=== PATIENT | female | born 1940 | race Two or more races ===

== ENCOUNTER 2024-05-24 16:29 | Emergency (ER) | payer MEDICARE, MEDICAID, SELFPAY ==
[2024-05-24] VITALS (8 sets, daily range): BP systolic 125–164; BP diastolic 61–104; PULSE 74–84; RESP 13–22; TEMP 36.8–37.1; O2SAT 95–100; BMI 26.4; BMI 25.1
--- NOTE | 2024-05-24 19:12 | PD.EDBACK ---
ED Back Injury Pain RME/HPI General Chief Complaint: Back Pain/Injury Stated Complaint: SYNCOPE Time Seen by Provider: 05/24/24 19:05 Arrival date/time: 05/24/24 16:29 This is an 83-year-old female that is brought in by ambulance with complaints of syncope episode. Patient states that she has been sick for over a week. Patient was recently seen by her primary provider and was diagnosed with a sinus infection. Patient started antibiotics. Patient states that she was feeling sick with antibiotics. Patient was having vomiting episodes at home. The patient reports a subjective fever approximately 3 days ago. Patient complains of runny nose, cough, sore throat, sinus pressure bilaterally, left ear feels close but not in pain. Patient has a history of diabetes, heart murmur, high blood pressure, hyperlipidemia. Related Data Previous Rx's ?Medication ?Instructions ?Recorded ondansetron 4 mg disintegrating 4 mg PO Q6H PRN nausea and 05/24/24 tablet vomiting #10 tabs Allergies Allergy/AdvReac Type Severity Reaction Status Date / Time Penicillins Allergy Severe Hives Verified 05/24/24 18:28 Review of Systems Review of Systems Systems Reviewed: All systems reviewed, normal except as documented Past Medical History Past Medical History Comments PMH COMMENT: High blood pressure, diabetes, hyperlipidemia, heart murmur. ED Exam General General appearance: Present alert Head Head exam: Present atraumatic Eye Eye exam: Present normal appearance, PERRL and EOMI ENT ENT exam: Present mucous membranes moist Neck Neck exam: Present normal inspection, full ROM and trachea midline Chest Chest inspection: Present normal inspection and symmetric chest wall rise Respiratory Respiratory exam: Present normal lung sounds bilaterally Cardiovascular Cardiovascular exam: Present regular rate, normal rhythm and systolic murmur Abdominal Exam Abdominal exam: Present soft and normal bowel sounds Extremities Exam Extremities exam: Present full ROM Back Exam Back exam: Present full ROM and other (Pain with range of motion to upper and lower back, pain to lateral muscles of lumbar spine no pain over spinal processes.) Neurological Exam Neurological exam: Present alert and oriented X3 Psychiatric Psychiatric exam: Present normal affect and normal mood Skin Skin exam: Present warm, dry, intact and normal color Course Quality Measures none Orders Category Date Time Status Bedside COVID-19 Antigen Test NOW Care 05/24/24 19:29 Completed Bedside Influenza A&B Antigen Test NOW Care 05/24/24 19:29 Completed EKG (ED ONLY) *Do not use* NOW Care 05/24/24 19:26 Completed Insert IV STAT Care 05/24/24 19:[address] cervical spine wo con Stat Exams 05/24/24 19:[address] head/brain wo con Stat Exams 05/24/24 19:[address] lumbar spine wo con Stat Exams 05/24/24 19:[address] thoracic spine wo con Stat Exams 05/24/24 19:26 Completed EKG (ED Only) Stat Exams 05/24/24 19:26 Draft XR chest 1V Stat Exams 05/24/24 19:26 Completed BNP [B-Type Natriuretic Peptide] Stat Lab 05/24/24 19:43 Completed Basic Metabolic Panel Stat Lab 05/24/24 22:43 Completed CBC Stat Lab 05/24/24 19:43 Completed Comprehensive Metabolic Panel Stat Lab 05/24/24 19:43 Completed Lipase Stat Lab 05/24/24 19:43 Completed Troponin I Stat Lab 05/24/24 19:43 Completed Urinalysis, C/S if Indicated Stat Lab 05/24/24 22:27 Completed Sodium Chloride 0.9% 500 ml [Ns] 500 ml Med 05/24/24 19:39 Discontinued IV 999 mls/hr Sodium Chloride 0.9% 500 ml [Ns] 500 ml Med 05/24/24 22:21 Discontinued IV 999 mls/hr [id number] [Rocephin] 1,000 mg Med 05/24/24 23:08 Discontinued Sodium Chloride 0.9% (P) [Ns 0.9% (P)] 50 ml IV X1 Vital Signs Vital signs: Vital Signs Temperature 98.3 F 05/24/24 16:34 Pulse Rate 78 05/24/24 16:34 Respiratory Rate 19 05/24/24 16:34 Blood Pressure 144/61 H 05/24/24 16:34 Pulse Oximetry (%) 95 05/24/24 16:34 Oxygen Delivery Method Room Air 05/24/24 16:34 Procedures -ED EKG Interpretation #1: Date of EK05/24/24 Time of EK:36 Rate: 81 Interpretation: Interpreted by me (Sinus rhythm) EKG Impression: No ectopy, Normal QRS and Normal intervals Back Pain / Injury MDM Narrative MDM Narrative:: CT cervical : Findings: Axial sections demonstrate intact base of the skull. C1 exhibit satisfactory relationship to the odontoid. No acute cervical vertebral body fracture seen. Alignment posterior spinous processes satisfactory. Impression: No acute cervical fracture. Chest x ray: Findings: Minor prominence left ventricle No pneumonia or pulmonary edema Prominent osteopenia Impression: No active disease CT head: Findings: No significant ventricular enlargement. Intra-axial or extra-axial hemorrhage density is not seen. No mass effect or midline shift Basal cisterns are not remarkable. Fourth ventricle is midline. Cranial vault intact. Impression: Negative for acute hemorrhage, mass effect or midline shift Lumbar spine ct: Findings: No acute lumbar vertebral body compression fracture Advanced disc narrowing L3-L4 L5-S1 spondylolysis Lumbar pedicles, laminae, transverse and posterior spinous processes intact Axial images demonstrate no focal lumbar disc protrusion Impression: No acute lumbar fracture Thoracic spine ct: Findings: Adequate alignment thoracic vertebral bodies on the lateral view No thoracic vertebral body compression fracture Thoracic pedicles, laminae, transverse and posterior spinous processes intact Mild to moderate diffuse thoracic degenerative disc disease Impression: No acute thoracic fracture Labs show wbc 18.9 with an elevated neutrophil. BUN and creatinine 24 and 1.7, ast 38 alt 31, alk phos 151, urine showed wbc, leuko estrase, Pt given a liter of iv fluids and felt better. Pt given a dose of rocephin. Pt kidney function improved with iv fluids. Spoke at length with patient about lab results. I told her shje needed to follow up with primary provider to make sure that kidnye function continued to improve. Pt told to follow up with primary provider in 1-2 days. Come back to emergency room if symptoms chaneg or worsen. Patient data External records reviewed:: [facility] previous records Clinical information provided by:: patient Social determinants that could affect healthcare access:: none Patient has the following chronic illnesses:: see note How is presenting disease/condition affected by chronic disease/condition?: exacerbated by Evaluation data The following diagnostics were reviewed and interpreted by me:: lab results, radiology exam(s) and EKG tracing(s) Lab and/or radiology exams considered but not ordered:: ct abdomen and pelvis Interpretation Summary: see note Medications / Prescriptions Medications or Prescriptions considered but not ordered:: none Medication administrations:: Medication Administration History Discontinued Medications Sodium Chloride (Ns) 500 mls @ 999 mls/hr IV .Q31M ONE Stop: 05/24/24 20:09 Last Infusion: 05/24/24 20:45 Dose: Infused Documented By: MARIA DEL CARMEN Admin: 05/24/24 19:53 Dose: 999 mls/hr Documented By: MARIA DEL CARMEN Sodium Chloride (Ns) 500 mls @ 999 mls/hr IV .Q31M ONE Stop: 05/24/24 22:51 Last Infusion: 05/24/24 23:26 Dose: Infused Documented By: MARIA DEL CARMEN Admin: 05/24/24 22:29 Dose: 999 mls/hr Documented By: MARIA DEL CARMEN Ceftriaxone Sodium 1,000 mg/ (Sodium Chloride) 50 mls @ 100 mls/hr IV X1 ONE Stop: 05/24/24 23:37 Last Infusion: 05/24/24 23:54 Dose: Infused Documented By: MARIA DEL CARMEN Admin: 05/24/24 23:18 Dose: 100 mls/hr Documented By: MARIA DEL CARMEN see mar Consultations Consultation(s) initiated? (list below): No Diagnosis Differential diagnosis back pain/injury: lumbar radiculopathy, renal colic, pyelonephritis, thoracic back pain and other (uti) Most likely diagnosis given after review of the tests above:: uti, dehydration Admission Indicated Admission indicated?: not indicated Admission Request Was there a request for admission?: No Disposition Plan Disposition Plan: Discharge Discharge Attestation Discharge Attestation: The patient and all family members were given an opportunity to ask questions and understood the discharge instructions. Discharge instructions specifically effects, indications for sooner follow up or return to the emergency department, and the expected course of current diagnosis. Patient condition: Stable Discharge Plan Plan Patient Disposition: HOME (Self Care) Patient condition on transfer: Stable Prescriptions/Referrals Prescriptions/Med Rec: New ondansetron 4 mg tablet,disintegrating 4 mg PO Q6H PRN (Reason: nausea and vomiting) Qty: 10 0RF Referrals: No Primary/Family,Physician [Primary Care Provider] - In 1 week Problem List Clinical Impression: Back pain, Acute UTI, Vomiting, GIGI (acute kidney injury), Congestion of nasal sinus Patient/Caregiver Discharge Instructions Discharge Activity: activity as tolerated Education Materials: ED CYSTITIS Female Adult Additional Instructions: Follow up with primary provider in 1-2 days. Come back to ED if symptoms change or worsen. Please drink plenty of fluids. Please follow-up with urine culture with primary provider. Please have kidney function checked again to make sure it continues to improve with hydration. Print Language: Setswana Stand Alone Forms: Kary Award Info., Patient Portal Info Letter PA/CUSTOMER SALES REPRESENTATIVE Supervising Physician PA/CUSTOMER SALES REPRESENTATIVE Supervising Physician: hui
--- NOTE | 2024-05-24 19:26 | XR_ITS ---
Examination: CT thoracic spine, without contrast. 2-D sagittal reconstructions. 2-D coronal reconstructions. 3-D reconstructions. Date and time of exam:May 24, 2024 2013 hrs. Indications: Syncopal episode today, patient fell injury to the mid back, mid back pain CTDI: vol (mGy):18.2 DLP: (mGycm):593 Technique: Multiple 1.25 mm axial sections of the thoracic spine without intravenous contrast have been obtained. 2-D sagittal and coronal reconstructions have been obtained. 3-D reconstructions have been obtained. Low dose protocols were performed. One or more of the following dose reduction techniques were used; automated exposure control, adjustment of the mA and/or KV according to patient size, use of iterative reconstruction technique. Findings: Adequate alignment thoracic vertebral bodies on the lateral view No thoracic vertebral body compression fracture Thoracic pedicles, laminae, transverse and posterior spinous processes intact Mild to moderate diffuse thoracic degenerative disc disease Impression: No acute thoracic fracture
--- NOTE | 2024-05-24 19:26 | XR_ITS ---
Examination: AP chest single view Technique: AP portable semiupright chest single view Exam date and time: May 24, 2024 1951 hrs. Indications: Syncope today. Findings: Minor prominence left ventricle No pneumonia or pulmonary edema Prominent osteopenia Impression: No active disease
--- NOTE | 2024-05-24 19:26 | XR_ITS ---
Examination: CT cervical spine without contrast 2-D sagittal reconstructions 2-D coronal reconstructions 3-D reconstructions. Exam date and time:May 24, 20252005 hrs. Indications: Patient fell today with injury to the neck, neck pain CTDI:vol (mGy) 7.73 DLP: (mGycm) 165 Technique: Multiple 2 mm axial sections of the cervical spine have been obtained. The coronal and sagittal reconstructions have been obtained. 3-D reconstructions have been obtained. Low dose protocols were performed. One or more of the following dose reduction techniques were used; automated exposure control, adjustment of the mA and/or KV according to patient size, use of iterative reconstruction technique. Findings: Axial sections demonstrate intact base of the skull. C1 exhibit satisfactory relationship to the odontoid. No acute cervical vertebral body fracture seen. Alignment posterior spinous processes satisfactory. Impression: No acute cervical fracture.
--- NOTE | 2024-05-24 19:26 | EKG_ITS ---
[facility] Test Date: 2024-05-24 Pat Name: LAUREN HUTCHINS Department: Room: - Gender: Female Academic Associate: : 1940 Requested By: Delmi Thibodeaux Order Number: [id number] Reading MD: Delmi Thibodeaux Measurements Intervals [place] Rate: 81 P: 46 MT: 149 QRS: -17 QRSD: 85 T: -1 QT: 383 QTc: 445 Interpretive Statements SINUS RHYTHM LOW QRS VOLTAGE IN PRECORDIAL LEADS [QRS DEFLECTION < 1.0 mV IN CHEST LEADS] MINIMAL VOLTAGE CRITERIA FOR LVH, CONSIDER NORMAL VARIANT [MEETS CRITERIA IN ONE OF: R(aVL), S(V1), R(V5), R(V5/V6)+S(V1)] No previous ECG available for comparison /store/S0/[id number].pdf
--- NOTE | 2024-05-24 19:26 | XR_ITS ---
Examination: CT brain head without contrast. 2-D sagittal coronal reconstructions Date and time of exam:May 24, 20242005 hrs. Indications: Patient fell today with injury to the head, head pain CTDI: vol (mGy):46.1 DLP: (mGycm):800 Technique: Multiple CT axial sections of the brain have been obtained, 5 mm slice thickness. Contrast has not been administered. 2-D sagittal, coronal reconstructions have been obtained Low dose protocols were performed. One or more of the following dose reduction techniques were used; automated exposure control, adjustment of the mA and/or KV according to patient size, use of iterative reconstruction technique. Findings: No significant ventricular enlargement. Intra-axial or extra-axial hemorrhage density is not seen. No mass effect or midline shift Basal cisterns are not remarkable. Fourth ventricle is midline. Cranial vault intact. Impression: Negative for acute hemorrhage, mass effect or midline shift
--- NOTE | 2024-05-24 19:26 | XR_ITS ---
Examination: CT lumbar spine, without contrast. 2-D sagittal reconstructions. 2-D coronal reconstructions. 3-D reconstructions. Date and time of exam:May 24, 2024 2013 hrs. Indications: Patient fell today with into the lower back, lower back pain CTDI: vol (mGy):18.8 DLP: (mGycm):451 Technique: Multiple 1.25 mm axial sections of the lumbar spine without intravenous contrast have been obtained. 2-D sagittal and coronal reconstructions have been obtained. 3-D reconstructions have been obtained. Low dose protocols were performed. One or more of the following dose reduction techniques were used; automated exposure control, adjustment of the mA and/or KV according to patient size, use of iterative reconstruction technique. Findings: No acute lumbar vertebral body compression fracture Advanced disc narrowing L3-L4 L5-S1 spondylolysis Lumbar pedicles, laminae, transverse and posterior spinous processes intact Axial images demonstrate no focal lumbar disc protrusion Impression: No acute lumbar fracture
[2024-05-24] MEDS: SODIUM CHLORIDE 0.9% 500 ML 500 ML 999 ML IV ×2 (19:53→22:29)
[2024-05-24 20:10] LABS: Basophils # (Auto) 0.2 Thou/mm3 (0.0-0.2); Basophils % (Auto) 1 % (0-2.5); Eosinophils % (Auto) 0 % (0-10); Hemoglobin 13.5 g/dL (12.0-16.0); Immature Granulocytes % (Auto) 0 % (0-0); Immature Granulocytes Auto 0.07 Thou/mm3 (0.00-0.00); Lymphocytes % (Auto) 11 % (10-50); Mean Corpuscular HGB Conc 33.8 g/dl (31.0-37.0); Mean Corpuscular Hemoglobin 30.2 pg (25.0-35.0); Mean Corpuscular Volume 90 fL (80-100); Monocytes # (Auto) 1.1 Thou/mm3 (0.0-0.8); Monocytes % (Auto) 6 % (0-12); Neutrophils # (Auto) 15.5 Thou/mm3 (1.8-7.7); Neutrophils % (Auto) 82 % (37-80); Nucleated Red Blood Cell % 0 /100 WBC (0); Platelet Count 246 Thou/mm3 (140-440); RDW Standard Deviation 40.2 fL (36.4-46.3); Red Blood Count 4.47 Miln/mm3 (4.00-5.20); White Blood Count 18.9 Thou/mm3 (3.6-11.0)
[2024-05-24 20:20] LABS: B-Type Natriuretic Peptide 76 pg/mL (0-100)
[2024-05-24 20:22] LABS: Alanine Aminotransferase 31 U/L (10-49); Albumin, Serum 4.2 gm/dL (3.4-4.8); Albumin/Globulin Ratio 1.2 (1.2-2.2); Alkaline Phosphatase 151 U/L (46-116); Anion Gap 8 (7-16); Aspartate Amino Transferase 38 U/L (0-34); BUN/Creatinine Ratio 14 Ratio (12-20); Bilirubin,Total 0.5 mg/dL (0.3-1.2); Blood Urea Nitrogen 24 mg/dL (9-23); Calcium 9.9 mg/dL (8.3-10.6); Calcium (Corrected) 9.9 mg/dL (8.5-10.1); Carbon Dioxide 25.5 mMol/L (20.0-31.0); Chloride 106 mMol/L (98-107); Creatinine (Component) 1.7 mg/dL (0.6-1.3); Estimated Creatinine Clearance 21.6 mL/min (>60); Globulin 3.4 gm/dL (2.3-3.5); Glucose 159 mg/dL (74-106); Lipase 31 U/L (12-53); Osmolality,Calculated 284 (275-295); Potassium 4.1 mMol/L (3.4-5.1); Sodium 139 mMol/L (136-145); Total Protein 7.6 gm/dL (5.7-8.2); Troponin I < 0.020 ng/mL (0.0-0.045); eGFR 30 See Note
[2024-05-24 22:34] LABS: Collection Type, Urine Voided; Squamous Epithelial Cell,Urine 0 /hpf (0-5)
[2024-05-24 23:01] LABS: Bilirubin,Urine Negative (Negative); Blood,Urine Negative (Negative); Clarity,Urine Clear (Clear/Hazy); Color,Urine Colorless (Lt Yel-Yel); Culture Indicated,Urine Not Indicated; Glucose, Urine Negative (Negative); Ketones,Urine Negative (Negative); Leukocyte Esterase,Urine Positive (Negative); Nitrite,Urine Negative (Negative); Protein,Urine Negative (Neg - Trace); RBC,Urine 1 /hpf (0-3); Specific Gravity,Urine 1.006 (1.001-1.035); Urobilinogen,Urine Negative mg/dL (0.0-1.0); WBC,Urine 7 /hpf (0-5)
[2024-05-24] MEDS: cefTRIAXone 1,000 MG in SODIUM CHLORIDE 0.9% (P) 50 ML 100 MG IV (23:18)
[2024-05-24 23:19] LABS: Anion Gap 4 (7-16); BUN/Creatinine Ratio 14 Ratio (12-20); Blood Urea Nitrogen 23 mg/dL (9-23); Calcium 8.9 mg/dL (8.3-10.6); Carbon Dioxide 25.3 mMol/L (20.0-31.0); Chloride 109 mMol/L (98-107); Creatinine (Component) 1.6 mg/dL (0.6-1.3); Glucose 242 mg/dL (74-106); Osmolality,Calculated 287 (275-295); Potassium 3.9 mMol/L (3.4-5.1); Sodium 138 mMol/L (136-145); eGFR 32 See Note
== END 2024-05-24 23:54 | disposition home or self-care (01) ==
PROVIDERS: Nurse Practitioner Family; Emergency Provider Emergency Medicine
DX: N17.9 Acute kidney failure, unspecified (principal); N39.0 Urinary tract infection, site not specified; R09.81 Nasal congestion; R55 Syncope and collapse; S09.90XA Unspecified injury of head, initial encounter; S19.9XXA Unspecified injury of neck, initial encounter; S29.9XXA Unspecified injury of thorax, initial encounter; R94.31 Abnormal electrocardiogram [ECG] [EKG]; S39.92XA Unspecified injury of lower back, initial encounter; W19.XXXA Unspecified fall, initial encounter
CPT/HCPCS: 36415; 70450; 71045; 72125; 72128; 72131; 80048; 80053; 81001; 83690; 83880; 84484; 85025; 87086; 87400; 87811; 93005; 96361; 96365; 99284; J0696; J7040; J7050

== ENCOUNTER → 2025-02-03 | Outpatient (CLI) | payer MEDICARE, MEDICAID, SELFPAY ==
--- NOTE | 2025-02-03 | XR_ITS ---
Examination: Abdomen 2 views TECHNIQUE: AP supine AP upright abdomen 2 views Date and time: January 26, 2025 1129 hours INDICATIONS: Acute abdominal pain beginning 5 days ago. FINDINGS: Large amounts of stool throughout the colon Lumbar levoscoliosis 15 degrees. No free air. 2 mm calcification over the left kidney Severe osteopenia IMPRESSION: Large amounts of stool throughout the colon, no obstruction Consider renal sonography to exclude small left renal calculus
== END | disposition home or self-care (01) ==
PROVIDERS: PCP Nurse Practitioner Family; Referring Provider Nurse Practitioner Family; Visit Provider Nurse Practitioner Family
DX: K59.00 Constipation, unspecified (principal)
CPT/HCPCS: 74019

== ENCOUNTER → 2025-05-07 | Outpatient (CLI) | payer MEDICARE, MEDICAID, SELFPAY ==
--- NOTE | 2025-05-07 10:57 | XR_ITS ---
Examination: Foot, left, 3 views Technique: AP, oblique, lateral views foot, 3 views Date and time of exam: May 07, 2025, 1104 hours, comparison March 31, 2025 INDICATIONS: Foot fracture March 31, 2025. FINDINGS: Minimal additional separation at the fracture site second metatarsal Early healing No new fractures Severe osteopenia IMPRESSION: Early healing fracture second metatarsal with satisfactory alignment
== END | disposition home or self-care (01) ==
PROVIDERS: PCP Orthopaedic Surgery; Referring Provider Orthopaedic Surgery; Visit Provider Orthopaedic Surgery
DX: S92.322A Displaced fracture of second metatarsal bone, left foot, initial encounter for closed fracture (principal); X58.XXXA Exposure to other specified factors, initial encounter
CPT/HCPCS: 73630

== ENCOUNTER → 2025-05-28 | Outpatient (CLI) | payer MEDICARE, MEDICAID, SELFPAY ==
--- NOTE | 2025-05-28 | XR_ITS ---
Examination: Foot, left, 3 views Technique: AP, oblique, lateral views foot, 3 views Date and time of exam: May 28, 2025, 1140 hours COMPARISON: May 07, 2025 INDICATIONS: Foot fracture March 31, 2025. FINDINGS: Partial healing fracture second metatarsal with stable and satisfactory alignment Prominent osteopenia IMPRESSION: Partial healing fracture second metatarsal with stable and satisfactory alignment
== END | disposition home or self-care (01) ==
LOC: CDIM 10:58
PROVIDERS: Referring Provider Orthopaedic Surgery; Visit Provider Orthopaedic Surgery
DX: S92.322A Displaced fracture of second metatarsal bone, left foot, initial encounter for closed fracture (principal); X58.XXXA Exposure to other specified factors, initial encounter
CPT/HCPCS: 73630